=== PATIENT | male | born 1970 | race Asian ===

== ENCOUNTER 2019-07-21 17:12 | Emergency (ER) | payer BC ==
[~2019-07-21] VITALS: Ht 162.6 cm; Wt 72.7 kg
[2019-07-21 18:25] VITALS: BP 115/80
[2019-07-21] MEDS ORDERED: KETOROLAC 60 MG/2 ML VIAL. IM ONE (18:30)
[2019-07-21] MEDS ORDERED: ORPHENADRINE CITRATE 60 MG/2 ML VIAL. IM ONE (18:30)
[2019-07-21] MEDS ORDERED: CYCL10TA2 PO (18:36)
[2019-07-21] MEDS ORDERED: NAPR-514 PO (18:36)
--- NOTE | 2019-07-21 18:37 | PHYS DOC ---
Past Medical History Past Medical History: No Pertinent History Past Surgical History: No Surgical History Smoking Status: Never Smoker Alcohol Use: None Drug Use: None Adult General Chief Complaint Chief Complaint: BACK PAIN OR INJURY HPI HPI Patient is a 49 year old female, accompanied by his daughter, who presents to the emergency department with complaints of right-sided low back pain for the last week. He denies any saddle anesthesia, dysuria, hematuria, abdominal pain, nausea, vomiting, diarrhea, or loss of bowel/bladder control. 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 He denies any recent injury or fall. Patient denies any numbness, tingling, or weakness of his extremities. He currently rates his pain a 10 on the pain scale, he denies any alleviating factors, the pain is worse with movement and palpation lumbar paraspinal muscles. Review of Systems Review of Systems All other ROS is negative unless otherwise noted in HPI. Physical Exam Physical Exam See Above Constitutional: Well developed, well nourished, no acute distress, non-toxic appearance. [] HENT: Normocephalic, atraumatic, bilateral external ears normal, nose normal. [] Eyes: PERRLA, EOMI, conjunctiva normal, no discharge. [] Neck: Normal range of motion, no stridor. [] Cardiovascular:Heart rate regular rhythm Lungs & Thorax: Bilateral breath sounds clear to auscultation [] Skin: Warm, dry, no erythema, no rash. [] Back: No bony tenderness, no CVA tenderness, right lumbar paraspinal tenderness to palpation with muscle tightness [] Extremities: No tenderness, no cyanosis, no clubbing, ROM intact, no edema, normal reflexes of bilateral patellar tendons, upper extremity strength 5/5 bilateral. [] Neurologic: Alert and oriented X 3, no focal deficits noted. [] Psychologic: Affect normal, judgement normal, mood normal. [] EKG EKG [] Radiology/Procedures Radiology/Procedures [] Course & Med Decision Making Course & Med Decision Making Pertinent Labs and Imaging studies reviewed. (See chart for details) [] Dragon Disclaimer Dragon Disclaimer This electronic medical record was generated, in whole or in part, using a voice recognition dictation system. Departure Departure Impression: Primary Impression: Strain of lumbar paraspinal muscle Disposition: HOME, SELF-CARE Condition: STABLE Referrals: NO PCP (PCP) Patient Instructions: Low Back Strain with [facility] Additional Instructions: Fill the prescription(s) and use as directed. Apply heat or ice for to sore areas as needed for comfort. Activity as tolerated. Follow up with your primary care doctor this week if symptoms persist, return to the ER if symptoms worsen. Scripts Naproxen (NAPROXEN) 500 Mg Tablet 1 TAB PO BID PRN for PAIN for 10 Days, #20 TAB 0 Refills Prov: EDSON PEACE APRN 07/21/19 Cyclobenzaprine Hcl (CYCLOBENZAPRINE HCL) 10 Mg Tablet 1 TAB PO TID PRN for PAIN for 10 Days, #30 TAB 0 Refills Prov: EDSON PEACE APRN 07/21/19 Problem Qualifiers Primary Impression: Strain of lumbar paraspinal muscle Encounter type: initial encounter Qualified Codes: S39.012A - Strain of muscle, fascia and tendon of lower back, initial encounter EDSON PEACE APRN Jul 21, 2019 18:37
== END 2019-07-21 18:52 | disposition home or self-care (01) ==
LOC: ER 17:12
DX: S39.012A Strain of muscle, fascia and tendon of lower back, initial encounter (principal); X50.1XXA Overexertion from prolonged static or awkward postures, initial encounter; Y93.89 Activity, other specified; Y92.89 Other specified places as the place of occurrence of the external cause; Y99.8 Other external cause status
CPT/HCPCS: 96372; 99284; J1885; J2360